=== PATIENT | male | born 1940 | race Caucasian/White ===

== ENCOUNTER 2017-06-13 01:37 | Inpatient (IN) | payer MEDICARE ==
[~2017-06-13] VITALS: Ht 177.8 cm; Wt 104.9 kg
[2017-06-13 02:26] LABS: BLOOD UREA NITROGEN 22 mg/dL (7-18)
[2017-06-13 02:30] LABS: IS PT STATUS REG ER OR PRE ER? YES
[2017-06-13] MEDS ORDERED: ASPI-515 PO (02:30)
[2017-06-13] MEDS ORDERED: EZET1TAB5 PO (02:30)
[2017-06-13] MEDS ORDERED: CARV3.122 PO (02:32)
[2017-06-13] MEDS ORDERED: ISOSORBIDE PO (02:35)
[2017-06-13] MEDS ORDERED: LISI5TAB7 PO (02:35)
[2017-06-13] MEDS ORDERED: METF850T2 PO (02:36)
[2017-06-13] MEDS ORDERED: HEPARIN 5,000 UNITS/ML, 1ML IV ONE (03:00)
[2017-06-13] MEDS ORDERED: HEPARIN 25,000 UNITS/500ML PMX 500 ML IV PRN (03:00)
[2017-06-13] MEDS ORDERED: HEPARIN 5,000 UNITS/ML, 1ML IV PRN (03:00)
[2017-06-13] MEDS ORDERED: HEPARIN 25,000 UNITS/500ML PMX 500 ML ONE (03:18)
[2017-06-13] MEDS ORDERED: HEPARIN 5,000 UNITS/ML, 1ML ONE (03:18)
[2017-06-13] MEDS ORDERED: morphine SULFATE 10 MG/ML, 1ML IVPush PRN (04:00)
[2017-06-13] MEDS ORDERED: ACETAMINOPHEN 325 MG TABLET PO PRN (04:00)
[2017-06-13 04:29] LABS: IS PT STATUS REG ER OR PRE ER? YES
[2017-06-13] MEDS: INSULIN ASPART 100 UNITS/ML, PEN SQ-INSULIN SCH ×4 (06:51→21:00)
[2017-06-13] MEDS ORDERED: FENTANYL PF 100 MCG/2ML ONE ×2 (08:34→10:13)
[2017-06-13] MEDS ORDERED: NITROGLYCERIN 5 MG/ML, 10ML ONE ×2 (08:34→09:10)
[2017-06-13] MEDS ORDERED: MIDAZOLAM 1 MG/ML, 5ML ONE ×2 (08:34→10:13)
[2017-06-13] MEDS ORDERED: HEPARIN 1,000 UNITS/ML, 10ML ONE ×2 (08:35→10:13)
[2017-06-13] MEDS ORDERED: BIVALIRUDIN 250 MG ONE (08:35)
[2017-06-13] MEDS ORDERED: LIDOCAINE 2%, 20ML ONE (08:35)
[2017-06-13] MEDS ORDERED: TICAGRELOR 90 MG TABLET ONE (08:35)
[2017-06-13] MEDS: CARVEDILOL 3.125 MG TABLET PO SCH (08:40)
[2017-06-13] MEDS: LISINOPRIL 5 MG TABLET PO SCH (08:40)
[2017-06-13] MEDS ORDERED: ASPIRIN 81 MG TABLET EC PO SCH (09:00)
[2017-06-13] MEDS ORDERED: ISOSORBIDE PO SCH (09:00)
[2017-06-13] MEDS ORDERED: TEMPLATE NON-FORMULARY MED. (Ezetimibe/Simvastatin** (Vytorin 10-40 Mg Tablet**) 1 TAB) PO SCH ×2 (09:00→11:13)
[2017-06-13] MEDS ORDERED: NITROGLYCERIN 0.4 MG BOTTLE (25 TABS) SL ONE (09:11)
[2017-06-13] MEDS ORDERED: PHENYLEPHRINE 10 MG/ML ONE (09:38)
[2017-06-13] MEDS ORDERED: ADENOSINE 90 MG/30 ML ONE (10:16)
[2017-06-13] MEDS ORDERED: ASPIRIN 325 MG TABLET EC ONE (11:08)
[2017-06-13 11:55] LABS: IS PT STATUS REG ER OR PRE ER? NO
[2017-06-13] MEDS: SODIUM CHLORIDE 0.9% 1,000 ML IV SCH ×2 (12:35→21:19)
[2017-06-13 12:37] VITALS: BP 123/80
[2017-06-13 19:43] VITALS: BP 110/66
[2017-06-13] MEDS: TICAGRELOR 90 MG TABLET PO SCH (21:18)
[2017-06-14 02:15] VITALS: BP 109/66
[2017-06-14] MEDS: ASPIRIN 81 MG TABLET EC PO SCH (05:46)
[2017-06-14 06:15] LABS: BLOOD UREA NITROGEN 14 mg/dL (7-18)
[2017-06-14 06:57] VITALS: BP 120/74
[2017-06-14] MEDS: INSULIN ASPART 100 UNITS/ML, PEN SQ-INSULIN SCH ×4 (07:00→19:48)
[2017-06-14] MEDS: LISINOPRIL 5 MG TABLET PO SCH (08:32)
[2017-06-14] MEDS: TICAGRELOR 90 MG TABLET PO SCH ×2 (08:32→19:48)
[2017-06-14] MEDS: CARVEDILOL 3.125 MG TABLET PO SCH (08:32)
[2017-06-14] MEDS: ISOSORBIDE DINITRATE 20 MG TABLET PO SCH (08:33)
[2017-06-14] MEDS: SODIUM CHLORIDE 0.9% 1,000 ML IV SCH ×2 (08:33→17:57)
[2017-06-14 12:14] VITALS: BP 93/48
[2017-06-14] MEDS ORDERED: ISOS20TA3 PO (14:58)
[2017-06-14] MEDS ORDERED: [UNRECOGNIZED DRUG - OTHER] MC SCH (18:00)
[2017-06-14 19:27] VITALS: BP 123/71
[2017-06-15 01:35] VITALS: BP 109/66
[2017-06-15] MEDS: SODIUM CHLORIDE 0.9% 1,000 ML IV SCH (04:02)
[2017-06-15 05:39] LABS: BLOOD UREA NITROGEN 15 mg/dL (7-18)
[2017-06-15] MEDS: ASPIRIN 81 MG TABLET EC PO SCH (06:13)
[2017-06-15] MEDS: INSULIN ASPART 100 UNITS/ML, PEN SQ-INSULIN SCH ×2 (07:00→11:00)
[2017-06-15 07:31] VITALS: BP 121/73
[2017-06-15] MEDS: TICAGRELOR 90 MG TABLET PO SCH (08:04)
[2017-06-15] MEDS: LISINOPRIL 5 MG TABLET PO SCH (08:04)
[2017-06-15] MEDS: ISOSORBIDE DINITRATE 20 MG TABLET PO SCH (08:04)
[2017-06-15] MEDS: CARVEDILOL 3.125 MG TABLET PO SCH (08:05)
[2017-06-15 13:00] VITALS: BP 108/67
[2017-06-15] MEDS ORDERED: NITR0.4T SL (13:23)
[2017-06-15] MEDS ORDERED: TICA90TA PO (13:23)
== END 2017-06-15 15:40 | disposition home or self-care (01) | DRG 246 ==
LOC: ED 02:45 → EDIP 02:50 → 5SO 10:57 → DCLOUNGE 06-15 14:38
PROVIDERS: ADMIT Internal Medicine; ATTEND Internal Medicine
PROC: 027034Z Dilation of Coronary Artery, One Artery with Drug-eluting Intraluminal Device, Percutaneous Approach (ICD-10-PCS; principal; 2017-06-13)
PROC: 4A033BC Measurement of Arterial Pressure, Coronary, Percutaneous Approach (ICD-10-PCS; 2017-06-13)
PROC: 4A023N7 Measurement of Cardiac Sampling and Pressure, Left Heart, Percutaneous Approach (ICD-10-PCS; 2017-06-13)
PROC: B2111ZZ Fluoroscopy of Multiple Coronary Arteries using Low Osmolar Contrast (ICD-10-PCS; 2017-06-13)
PROC: B2151ZZ Fluoroscopy of Left Heart using Low Osmolar Contrast (ICD-10-PCS; 2017-06-13)
DX: I21.4 Non-ST elevation (NSTEMI) myocardial infarction (principal); I50.31 Acute diastolic (congestive) heart failure; E11.9 Type 2 diabetes mellitus without complications; E78.5 Hyperlipidemia, unspecified; I25.5 Ischemic cardiomyopathy; D64.9 Anemia, unspecified; E78.00 Pure hypercholesterolemia, unspecified; I11.0 Hypertensive heart disease with heart failure; I25.119 Atherosclerotic heart disease of native coronary artery with unspecified angina pectoris; E66.3 Overweight; R94.6 Abnormal results of thyroid function studies; I25.2 Old myocardial infarction; Z82.49 Family history of ischemic heart disease and other diseases of the circulatory system; Z87.891 Personal history of nicotine dependence; Z95.5 Presence of coronary angioplasty implant and graft; Z79.899 Other long term (current) drug therapy; Z90.49 Acquired absence of other specified parts of digestive tract; Z68.33 Body mass index [BMI] 33.0-33.9, adult
CPT/HCPCS: 36415; 71010; 80048; 80061; 82040; 82962; 83735; 83880; 84443; 84484; 85025; 85347; 85520; 92920; 93005; 93458; 93571; 96374; 99156; 99157; C1760; C1769; C1894; C8929; J0153; J0583; J1644; J2250; J3010; J3490; 92928; C1725; C1874; C1887; J2370; J7030; Q9967